=== PATIENT | female | born 1975 | race Caucasian/White ===

== ENCOUNTER → 2017-08-09 | Outpatient (CLI) | payer OTHER | LOC: RAD 09:32 | DX: M77.32 Calcaneal spur, left foot (principal) ==

== ENCOUNTER 2017-09-21 09:07 | Outpatient (RCR) | payer OTHER ==
[~2017-09-21] VITALS: Ht 162.6 cm; Wt 81.8 kg
[2017-09-21 09:44] VITALS: BP 107/69
--- NOTE | 2017-09-21 10:36 | NUR ---
LAB DRAWN FROM IV START. PT BECAME NAUSEATED WHILE DRAWING BLOOD, DRY HEAVES, RESOLVED QUICKLY.
[2017-09-21 10:55] VITALS: BP 117/71
[2017-09-21] MEDS ORDERED: BACLOFEN10 M1 PO (15:58)
[2017-09-21] MEDS ORDERED: COPAXONE40 MG/ML SC (15:59)
[2017-09-21] MEDS ORDERED: CLOBETASOL OINT TOP (15:59)
[2017-09-21] MEDS ORDERED: ADVIL 200MG TA200 MG PO (16:00)
[2017-09-22 09:33] VITALS: BP 106/61
[2017-09-22 10:25] VITALS: BP 113/58
[2017-09-22] MEDS ORDERED: POTASSIUM CH2 MEQ/ML PO (10:31)
[2017-09-23 09:35] VITALS: BP 108/65
[2017-09-23 10:38] VITALS: BP 102/66
== END 2017-09-23 11:00 | disposition home or self-care (01) ==
LOC: AMSURD 09:07
DX: G35 Multiple sclerosis (principal)
CPT/HCPCS: J2930; J7050

== ENCOUNTER → 2018-11-09 | Outpatient (CLI) | payer OTHER ==
[~2018-11-09] MED LIST: ADVIL 200MG TA200 MG PO; BACLOFEN10 M1 PO; CLOBETASOL OINT TOP; COPAXONE40 MG/ML SC; POTASSIUM CH2 MEQ/ML PO
== END ==
LOC: RAD 07:45
DX: G35 Multiple sclerosis (principal)
CPT/HCPCS: A9585

== ENCOUNTER → 2018-11-19 | Outpatient (REF) | payer OTHER ==
[~2018-11-19] MED LIST changes: +AMBIEN5 M1 PO; +BUSPIRONE5 MG PO
[2018-11-19 10:39] LABS: ALBUMIN 4.4 g/dL (3.5-5.0); CALCIUM 9.1 mg/dL (8.4-10.2); POTASSIUM 3.6 mmol/L (3.6-5.0); TOTAL BILIRUBIN 0.6 mg/dL (0.2-1.3); TOTAL PROTEIN 7.3 g/dL (6.3-8.2)
== END ==
LOC: LAB 09:32
PROVIDERS: Internal Medicine
DX: G35 Multiple sclerosis (principal)

== ENCOUNTER 2018-11-23 09:04 | Outpatient (RCR) | payer OTHER ==
[2018-11-19 10:07] VITALS: BP 109/54
[2018-11-19 11:10] VITALS: BP 117/71
[2018-11-20 09:40] VITALS: BP 105/66
[2018-11-20 10:48] VITALS: BP 112/61
[2018-11-21 09:55] VITALS: BP 113/66
[2018-11-22 09:18] VITALS: BP 114/65
[2018-11-22 10:42] VITALS: BP 101/67
[~2018-11-23] VITALS: Ht 162.6 cm; Wt 80.5 kg
[2018-11-23 09:25] VITALS: BP 108/50
[2018-11-23 11:07] VITALS: BP 125/76
== END 2018-11-24 08:00 | disposition still patient (30) ==
LOC: AMSURD 09:04
DX: G35 Multiple sclerosis (principal)
CPT/HCPCS: J2930; J7060

== ENCOUNTER → 2018-12-26 | Outpatient (CLI) | payer OTHER | LOC: LAB 09:38 | DX: R30.0 Dysuria (principal) ==

== ENCOUNTER → 2019-03-13 | Outpatient (CLI) | payer OTHER | LOC: RAD 12:48 | DX: N94.89 Other specified conditions associated with female genital organs and menstrual cycle (principal); N92.6 Irregular menstruation, unspecified ==

== ENCOUNTER → 2019-04-25 | Outpatient (CLI) | payer OTHER ==
[2019-04-25 09:51] LABS: HEMATOCRIT 43.9 % (37.0-47.0); HEMOGLOBIN 14.2 g/dL (12.5-16.0); MEAN CELL VOLUME 92 fl (78-100); MEAN CORPUSCULAR HEMOGLOBIN 30 pg (27-31); MEAN CORPUSCULAR HGB CONC 32 g/dL (33-37); MEAN PLATELET VOLUME 9.7 fl (7.4-10.4); PLATELET COUNT 272 K/mm3 (130-400); RED BLOOD COUNT 4.79 M/mm3 (4.10-5.30); RED CELL DISTRIBUTION WIDTH 13.1 % (11.5-14.5); WHITE BLOOD COUNT 3.8 K/mm3 (4.8-10.8)
[2019-04-25 10:03] LABS: ALBUMIN 4.1 g/dL (3.5-5.0); POTASSIUM 4.2 mmol/L (3.5-5.1)
[2019-04-25 10:06] LABS: TOTAL PROTEIN 6.8 g/dL (6.4-8.3)
[2019-04-25 10:07] LABS: TOTAL BILIRUBIN 0.7 mg/dL (0.2-1.2)
[2019-04-25 10:16] LABS: LYMPHOCYTE 6 % (20-51); MONOCYTE 15 % (3-10); NEUTROPHILS 76 % (42-75)
== END ==
LOC: LAB 09:41
PROVIDERS: Family Medicine
DX: Z01.419 Encounter for gynecological examination (general) (routine) without abnormal findings (principal); E78.5 Hyperlipidemia, unspecified

== ENCOUNTER → 2020-05-16 | Outpatient (CLI) | payer OTHER | LOC: RAD 08:56 | DX: M54.9 Dorsalgia, unspecified (principal) ==

== ENCOUNTER → 2020-10-14 | Outpatient (REF) | LOC: LAB 09:39 | DX: Z01.89 Encounter for other specified special examinations (principal) ==

== ENCOUNTER → 2021-01-16 | Outpatient (REF) | LOC: LAB 11:14 | DX: G35 Multiple sclerosis (principal); Z79.899 Other long term (current) drug therapy ==

== ENCOUNTER → 2021-03-17 | Outpatient (CLI) | payer OTHER | LOC: LAB 12:23 → EDSTATUS 12:26 → RAD 12:27 → LAB 12:27 → EDSTATUS 12:30 | DX: M17.12 Unilateral primary osteoarthritis, left knee (principal) ==

== ENCOUNTER → 2021-03-20 | Outpatient (CLI) | payer OTHER | LOC: RAD 17:30 | DX: M17.12 Unilateral primary osteoarthritis, left knee (principal) ==

== ENCOUNTER → 2021-05-19 | Outpatient (CLI) | payer OTHER ==
[2021-05-19 09:57] LABS: HEMATOCRIT 43.9 % (37.0-47.0); HEMOGLOBIN 14.1 g/dL (12.5-16.0); MEAN CELL VOLUME 94 fl (78-100); MEAN CORPUSCULAR HEMOGLOBIN 30 pg (27-31); MEAN CORPUSCULAR HGB CONC 32 g/dL (33-37); MEAN PLATELET VOLUME 9.2 fl (7.4-10.4); PLATELET COUNT 232 K/mm3 (130-400); RED BLOOD COUNT 4.65 M/mm3 (4.10-5.30); RED CELL DISTRIBUTION WIDTH 12.9 % (11.5-14.5); WHITE BLOOD COUNT 4.4 K/mm3 (4.8-10.8)
[2021-05-19 10:02] LABS: POTASSIUM 4.7 mmol/L (3.5-5.1)
[2021-05-19 10:04] LABS: CALCIUM 8.9 mg/dL (8.3-10.5)
[2021-05-19 10:05] LABS: TOTAL PROTEIN 6.6 g/dL (6.4-8.3)
[2021-05-19 10:07] LABS: TOTAL BILIRUBIN 0.4 mg/dL (0.2-1.2)
[2021-05-19 10:15] LABS: NEUTROPHILS 78 % (42-75)
[2021-05-19 10:16] LABS: LYMPHOCYTE 13 % (20-51); MONOCYTE 7 % (3-10)
== END ==
LOC: LAB 09:36
PROVIDERS: Psychiatry & Neurology Neurology
DX: G35 Multiple sclerosis (principal); Z79.899 Other long term (current) drug therapy

== ENCOUNTER → 2021-07-11 | Outpatient (REF) | LOC: LAB 08:11 → EDSTATUS 08:12 | DX: Z00.00 Encounter for general adult medical examination without abnormal findings (principal); E78.5 Hyperlipidemia, unspecified ==

== ENCOUNTER → 2021-08-22 | Outpatient (CLI) | payer OTHER | LOC: LAB 13:23 | DX: Z20.822 Contact with and (suspected) exposure to COVID-19 (principal) ==

== ENCOUNTER → 2022-04-27 | Outpatient (REF) | LOC: LAB 15:42 | DX: G35 Multiple sclerosis (principal); Z79.899 Other long term (current) drug therapy ==

== ENCOUNTER 2022-10-12 19:03 | Emergency (ER) | payer OTHER ==
[~2022-10-12] VITALS: Wt 76.7 kg
[2022-10-12 20:41] VITALS: BP 130/78
== END 2022-10-12 20:41 | disposition home or self-care (01) ==
LOC: ED 19:03
DX: S61.412A Laceration without foreign body of left hand, initial encounter (principal); E66.9 Obesity, unspecified; W26.9XXA Contact with unspecified sharp object(s), initial encounter; Y93.G1 Activity, food preparation and clean up

== ENCOUNTER → 2022-11-20 | Outpatient (CLI) | payer OTHER | LOC: RAD 08:32 | DX: M17.11 Unilateral primary osteoarthritis, right knee (principal) ==